=== PATIENT | male | born 1995 | race Caucasian/White ===

== ENCOUNTER 2017-02-09 12:21 | Emergency (ER) | payer BC ==
[~2017-02-09] VITALS: Ht 181 cm; Wt 75.0 kg
[2017-02-09 12:31] VITALS: TEMP 97.9
[2017-02-09 13:51] VITALS: BP 152/88; PULSE 102
== END 2017-02-09 13:51 | disposition home or self-care (01) ==
LOC: COL.ER 12:21
DX: J02.9 Acute pharyngitis, unspecified (principal)

== ENCOUNTER 2017-03-01 10:20 | Emergency (ER) | payer BC ==
[~2017-03-01] VITALS: Ht 182.9 cm; Wt 79.0 kg
[2017-03-01] MEDS ORDERED: PREDNISONE20 MG PO (13:00)
[2017-03-01] MEDS ORDERED: ZITHROMAX Z PA250 MG PO (13:00)
[2017-03-01 13:19] VITALS: BP 133/64; PULSE 107; TEMP 101.5
== END 2017-03-01 13:20 | disposition home or self-care (01) ==
LOC: COL.ER 10:20
DX: J03.90 Acute tonsillitis, unspecified (principal)

== ENCOUNTER 2017-11-19 13:35 | Emergency (ER) | payer OTHER ==
[~2017-11-19] VITALS: Ht 182.9 cm; Wt 82.7 kg
[~2017-11-19 13:35] MED LIST: PREDNISONE20 MG PO; ZITHROMAX Z PA250 MG PO
[2017-11-19 16:43] LABS: HEMATOCRIT 48.1 % (42.0-52.0); HEMOGLOBIN 16.1 g/dl (13.5-18.0); MEAN CELL VOLUME 90 fl (80.0-100.0); MEAN CORPUSCULAR HEMOGLOBIN 30 pg (27.0-31.0); MEAN CORPUSCULAR HGB CONC 34 g/dl (33.0-37.0); RED BLOOD COUNT 5.35 M/mm3 (4.20-5.60)
[2017-11-19 16:44] LABS: BASO # 0.1 (0.0-0.2); BASO % 0.7 % (0.0-2.0); GRAN # 6.6 (1.4-6.5); GRAN % 72.2 % (42.2-75.2); LYMPH # 1.7 (1.2-3.4); LYMPH % 18.5 % (20.0-51.0); MEAN PLATELET VOLUME 10.7 fl (7.4-10.4); MONO # 0.8 (0.1-0.6); MONO % 8.4 % (1.7-9.3); PLATELET COUNT 266 K/mm3 (130-400); REDCELL DISTRIBUTION WIDTH-CV 13.2 % (11.5-14.5)
[2017-11-19 16:54] LABS: ALANINE AMINOTRANSFERASE 33 U/L (21-72); ALBUMIN 5.8 gm/dL (3.5-5.0); ALKALINE PHOSPHATASE 68 U/L (50-136); ANION GAP 22 mmol/L (7-16); AST,SGOT 38 U/L (15-37); BILIRUBIN,TOTAL 1.1 mg/dL (0.0-1.0); BLOOD UREA NITROGEN 12 mg/dL (9-20); CALCIUM 9.9 mg/dL (8.4-10.2); CHLORIDE 106 mmol/L (98-107); CREATININE, serum 1.06 mg/dL (0.66-1.25); GLUCOSE 130 mg/dL (74-106); POTASSIUM 3.4 mmol/L (3.4-5.0); SODIUM 140 mmol/L (137-145); TOTAL PROTEIN 9.1 gm/dL (6.4-8.2)
[2017-11-19 16:55] LABS: ACETAMINOPHEN < 10 ug/mL (10-30); ALCOHOL(ethanol),MEDICAL < 10 mg/dL; SALICYLATE < 1.0 mg/dL
[2017-11-19 16:56] LABS: CARBON DIOXIDE 13 mmol/L (22-30)
[2017-11-19 17:40] LABS: TRICYCLIC ANTIDEPRESS URINE NEGATIVE
[2017-11-20 14:10] LABS: COLLECTION METHOD CLEAN CATCH
[2017-11-20 14:50] LABS: BUDDING YEAST Present /hpf; MUCOUS Present /lpf; PH 7 (5-8); SQUAMOUS EPITHELIAL 0-2 /hpf; URINE APPEARANCE Turbid; URINE BACTERIA None Seen /hpf; URINE BILIRUBIN Negative (NEGATIVE); URINE BLOOD Negative (NEGATIVE); URINE COLOR Amber; URINE GLUCOSE Negative (NEGATIVE); URINE KETONE Trace (NEGATIVE); URINE LEUKOCYTE ESTERASE Negative (NEGATIVE); URINE NITRATE Negative (NEGATIVE); URINE PROTEIN(semi-quant) 2+ (NEGATIVE); URINE RBC 0-2 /hpf; URINE UROBILINOGEN >=4.0 mg/dL (NEGATIVE)
[2017-11-20 16:37] VITALS: TEMP 97.2
[2017-11-20 19:05] VITALS: BP 134/76; PULSE 88
== END 2017-11-20 19:14 ==
LOC: COL.ER 13:35
PROVIDERS: Emergency Medicine; Physician Assistant
DX: F29 Unspecified psychosis not due to a substance or known physiological condition (principal); R45.850 Homicidal ideations
CPT/HCPCS: J1630; J2060